=== PATIENT | male | born 2000 | race Caucasian/White ===

== ENCOUNTER 2022-02-04 18:21 | Emergency (ER) | payer MEDICAID ==
[~2022-02-04] VITALS: Ht 170.2 cm; Wt 68.0 kg
[2022-02-04 18:23] VITALS: BP 151/80
--- NOTE | 2022-02-04 18:30 | NUR ---
PT AMB TO BED 11.
--- NOTE | 2022-02-04 18:30 | NUR ---
walked in c/o r shoulder pain onset 3days ago. pt states being evaluated 3 days ago at [facility] for the same s/sx after climbing a fence. pt states bristol dx dislocation and tried to position back in place. pt reports increasing pain since the ED visit. iv placed on left ac 20g.
--- NOTE | 2022-02-04 18:35 | NUR ---
xr at bedside
[2022-02-04 18:36] VITALS: BP 121/89
[2022-02-04] MEDS ORDERED: KETOROLAC 30 MG/ML VIAL ONE (18:44)
[2022-02-04] MEDS ORDERED: KETOROLAC 30 MG/ML VIAL IVP ONE (18:45)
[2022-02-04] MEDS ORDERED: IBUP-2213 PO (18:58)
--- NOTE | 2022-02-04 19:00 | NUR ---
Patient discharged with v/s stable. Written and verbal after care instructions given and explained. Patient verbalized understanding. Ambulatory with steady gait. All questions addressed prior to discharge. Advised to follow up with PMD.
== END 2022-02-04 19:00 | disposition home or self-care (01) ==
LOC: MED 18:21
DX: M25.511 Pain in right shoulder (principal); R03.0 Elevated blood-pressure reading, without diagnosis of hypertension; Z79.899 Other long term (current) drug therapy
CPT/HCPCS: 29105; 73030; 96374; 99283; J1885